=== PATIENT | female | born 2000 | race Caucasian/White ===

== ENCOUNTER → 2021-11-02 14:52 | Outpatient (CLI) | payer OTHER, SELFPAY ==
[2021-11-02 17:05] LABS: Add Manual Diff / Slide Review NO; Basophils Absolute Auto 0 /uL (0-100); Basophils Percent Auto 0.2 % (0-2); Eosinophils Absolute Auto 0 /uL (0-450); Eosinophils Percent Auto 0.4 % (2-4); Hematocrit 34.2 % (36-46); Hemoglobin 11.9 g/dL (12.0-16.0); Lymphocytes Absolute Auto 1700 /uL (1100-4500); Mean Corpuscular HGB Conc 34.7 % (30-36); Mean Corpuscular Hemoglobin 29.5 PG (26-34); Mean Corpuscular Volume 84.9 fL (80-100); Monocytes Absolute Auto 700 /uL (0-900); Monocytes Percent Auto 6.6 % (3-14); Neutrophils Absolute Auto 7800 /uL (1500-7000); Neutrophils Percent Auto 75.8 % (50-75); Platelet Count 261 X10^3/uL (150-400); Red Blood Cell Count 4.02 X10^6/uL (4.0-5.2); Red Cell Distribution Width 13.7 % (11.6-14.8); White Blood Cell Count 10.3 X10^3/uL (4.5-11.0)
[2021-11-02 17:23] LABS: Prothrombin Time 10.7 SECONDS (10.1-12.7)
[2021-11-02 17:25] LABS: PTT Partial Thromboplastin Tim 29 SECONDS (26.4-36.2)
[2021-11-02 17:34] LABS: HEMOLYSIS < 15 (0-50); Iron 55 ug/dL (37-170)
[2021-11-02 17:36] LABS: GTT (PREG) 1 Hour PP 50gm Dose 107 mg/dL (76-139)
[2021-11-02 17:44] LABS: Percent Iron Saturation 13 % (15-50); Total Iron Binding Capacity 438 ug/dL (265-497); Transferrin 330 mg/dL (206-381)
== END ==
PROVIDERS: Referring Provider Family Medicine; Visit Provider Family Medicine
DX: O99.019 Anemia complicating pregnancy, unspecified trimester (principal); R23.8 Other skin changes; Z67.11 Type A blood, Rh negative; N89.8 Other specified noninflammatory disorders of vagina
CPT/HCPCS: 36415; 82950; 83540; 83550; 85025; 85610; 85730; 86850; 87210

== ENCOUNTER → 2021-11-14 17:03 | Outpatient (ROUT) | payer OTHER, SELFPAY ==
[2021-11-14 18:34] LABS: Urine N gonorrhoeae NOT DETECTED
[2021-11-14 18:38] LABS: Urine Chlamydia DETECTED
== END ==
PROVIDERS: Visit Provider Family Medicine
DX: Z34.93 Encounter for supervision of normal pregnancy, unspecified, third trimester (principal); Z3A.30 30 weeks gestation of pregnancy
CPT/HCPCS: 87491; 87591

== ENCOUNTER 2021-11-25 21:18 | Observation (INO) | payer BC, OTHER, SELFPAY ==
[2021-11-25] MEDS: NIFEdipine 10 MG CAPSULE PO ×2 (22:22→22:41)
--- NOTE | 2021-11-26 11:15 | P.TNLD_ITS ---
Visit Information Visit Information Date of evaluation: 11/25/21 Primary OB Provider: Jillian Spence On-call OB Provider: Candy Damian Reason for Evaluation: Yes pre-term labor Comments/Additional reasons for admission: Patient with [place] contractions getting more painful Vital Signs Vital Signs: BP 115/62, P 91, T 36.7 PFSH Medical History (Updated 11/26/21 @ 11:31 by Candy Damian MD) Constipation Hyperemesis Surgical History (Updated 08/20/21 @ 11:39 by Billie Gibson, RN) History of tonsillectomy Family History (Updated 08/20/21 @ 11:41 by Billie Gibson, RN) Grandfather Clotting disorder Mother Hypothyroid Social History marital status: number of children: 1 household members: spouse and children lives independently: Yes housing: house pets and animals: Yes (Dog) education level: high school occupational status: unemployed current occupational exposures/hazards: No seatbelt use: always water heater temp set < 120 deg: Yes working smoke detector in home: Yes fire extinguisher in home: Yes carbon monox detector in home: Yes firearms in home: No do you feel safe at home: Yes Smoking Status: Never smoker second hand exposure: No alcohol intake: former substance use type: does not use during the past year weight has: remained stable well-balanced diet: daily or most days daily servings fruits/ve-4 caffeine: Yes (200mg) Type(s) of exercise: walking Review of Systems Review of Systems Narrative: Patient came in c/o contractions. No leakage of fluid. Finishing antibiotics for infection. No fevers. GFM. Evaluation Evaluation Baseline heart rate: 145 Variability: Moderate (11-25) monitor accelerations: Present Monitor Decelerations: Absent Contraction Frequency (minutes): 3 Uterine Contraction Intensity: Mild Category of Tracing: Reactive Status: Category l Comments: After po hydration and po nifedipine no further contractions Diagnosis, Plan/Disposition Final Diagnosis (1) Premature labor: Status: Acute (2) 31 weeks gestation of : Status: Acute Plan/Disposition Plan: Contractions resolved. Push fluids, rest, call M.D. if contractions return. OB Disposition: home
== END 2021-11-25 23:40 | disposition home or self-care (01) ==
PROVIDERS: Admitting Provider Specialist; Referring Provider Specialist; Visit Provider Specialist
DX: O60.03 Preterm labor without delivery, third trimester (principal); Z3A.31 31 weeks gestation of pregnancy
CPT/HCPCS: 59025; 59050; G0378; G0379

== ENCOUNTER → 2021-11-28 13:04 | Outpatient (CLI) | payer BC, OTHER, SELFPAY ==
--- NOTE | 2021-11-28 13:06 | DI.US.S_ITS ---
PROCEDURE: US OB LIMITED INDICATIONS: PLACENTAL HECK OUTSIDE/PRIOR DATING DATA: Last menstrual period (LMP): 04/16/2021. LMP-based estimated date of delivery (SHAHID): 01/21/2022. First dating scan (date and location): Unknown. Estimated date of delivery (SHAHID) from first dating scan: Not applicable TECHNIQUE: Real-time scanning was performed of the fetus, with image documentation. Endovaginal scanning: No COMPARISON: [facility], US, US OB > 14 WEEKS COMPLETE ANATOMY, 09/06/2021, 8:18. FINDINGS: A single living intrauterine gestation is present. Presentation: Breech. Placenta: Placental position is anterior, without previa. Placental Heck measuring 35 mm is present, which is within normal limits. Amniotic fluid index: 9.5 cm, normal range is 5-24 cm.. heart rate: 150 beats per minute. Maternal cervical canal: 4.2 cm long. Normal lower limit is 2.5 cm. Estimated gestational age from initial scan: 32 weeks 2 days. Survey of anatomy includes normal lateral ventricle/choroid plexus, four-chamber heart view, stomach/abdomen, bilateral renal regions, and urinary bladder/pelvis. IMPRESSION: 1. Single living intrauterine gestation. Dictated by: Carlos Connell M.D. on 11/28/2021 at 15:19 Approved by: Carlos Connell M.D. on 11/28/2021 at 16:55
== END ==
PROVIDERS: Referring Provider Family Medicine; Visit Provider Family Medicine
DX: O43.103 Malformation of placenta, unspecified, third trimester (principal); Z3A.32 32 weeks gestation of pregnancy
CPT/HCPCS: 76815; 76819

== ENCOUNTER 2021-12-04 12:22 | Observation (INO) | payer BC, OTHER, SELFPAY ==
[2021-12-04 13:11] LABS: Appearance Urine UA CLEAR; Bilirubin Urine UA NEGATIVE (NEGATIVE); Color Urine UA YELLOW; Glucose Urine UA NEGATIVE (Negative); Ketones Urine UA TRACE (NEGATIVE); Leukocyte Esterase Urine UA TRACE (NEGATIVE); Nitrite Urine UA NEGATIVE (Negative); Occult Blood Urine UA NEGATIVE (Negative); Protein Urine UA 1+ (Negative); Specific Gravity Urine UA 1.025 (1.000-1.035); Urobilinogen Urine UA 0.2 E.U./dL (0.2)
[2021-12-04 13:23] LABS: pH Urine UA 6.5 (4.5-8.0)
--- NOTE | 2021-12-04 13:26 | PM.OBTRLD ---
Visit Information Visit Information Date of evaluation: 12/04/21 Primary OB Provider: Jillian Spence Reason for Evaluation: Yes pre-term labor Comments/Additional reasons for admission: 21yo at 33w1d here due to abdominal cramping. Pt reports cramping started last night, and has been more painful this morning. It occurs approximately every 5 minutes. Sometimes it is strong enough to take her breath away. No vaginal bleeding or LOF. She is feeling her baby move regularly. [facility] Medical History (Updated 12/05/21 @ 13:16 by Jillian Spence MD) Constipation Hyperemesis Surgical History (Updated 08/20/21 @ 11:39 by Billie Gibson, RN) History of tonsillectomy Family History (Updated 08/20/21 @ 11:41 by Billie Gibson, RN) Grandfather Clotting disorder Mother Hypothyroid Social History marital status: number of children: 1 household members: spouse and children lives independently: Yes housing: house pets and animals: Yes (Dog) education level: high school occupational status: unemployed current occupational exposures/hazards: No seatbelt use: always water heater temp set < 120 deg: Yes working smoke detector in home: Yes fire extinguisher in home: Yes carbon monox detector in home: Yes firearms in home: No do you feel safe at home: Yes Smoking Status: Never smoker second hand exposure: No alcohol intake: former substance use type: does not use during the past year weight has: remained stable well-balanced diet: daily or most days daily servings fruits/ve-4 caffeine: Yes (200mg) Type(s) of exercise: walking Objective Labs Labs: Laboratory Results - last 24 hr 12/04/21 12:31 Urine Color Yellow Urine Appearance Clear Urine pH 6.5 Ur Specific [place] 1.025 Urine Protein 1+ H Urine Glucose (UA) Negative Urine Ketones Trace H Urine Occult Blood Negative Urine Nitrate Negative Urine Bilirubin Negative Urine Urobilinogen 0.2 Ur Leukocyte Esterase Trace H Evaluation Evaluation Baseline heart rate: 140 Variability: Moderate (11-25) monitor accelerations: Present Monitor Decelerations: Absent Cervical dilation (cm): 0 Cervical effacement (%): 0 station: -3 Comments: Contractions initially every 6 minutes, then every 2-3 minutes, then not detectable Diagnosis, Plan/Disposition Final Diagnosis (1) contractions: Status: Acute (2) 33 weeks gestation of : Status: Acute Plan/Disposition Plan: 21yo at 33w1d here with contractions. Pt was recently treated for chlamydia, DENNIS currently pending. U/A without evidence UTI. Does appear slightly dehydrated on U/A, however. Did respond to 1L IVF bolus, PO Nifedipine. Cervix not dilated, cervical length 3.9 - FFN collected but not sent. Contractions abated at the time of discharge. Discussed strict return precautions. Encouraged increased hydration. PRN PO Nifedipine prescribed today, discussed appropriate use. Pt will f/u in clinic next week. OB Disposition: home
--- NOTE | 2021-12-04 13:27 | DI.US.S_ITS ---
PROCEDURE: US OB LIMITED INDICATIONS: PTL; EFW, CX OUTSIDE/PRIOR DATING DATA: Last menstrual period (LMP): 04/16/2021. LMP-based estimated date of delivery (SHAHID): 01/21/2022. First dating scan (date and location): Not available. Estimated date of delivery (SHAHID) from first dating scan: Not available. The calculations are made using the clinical SHAHID of 01/21/2022. TECHNIQUE: Real-time scanning was performed of the fetus, with image documentation and biometric measurements. Biophysical profile was also obtained. Endovaginal scanning: Not performed. COMPARISON: [facility], , OB FOLLOW UP, 11/08/2021, 17:02. [facility], OB > 14 WEEKS COMPLETE ANATOMY, 09/06/2021, 8:18. [facility], OB LIMITED, 11/28/2021, 14:35. FINDINGS: General: A single living intrauterine gestation is present. Presentation: Vertex. Placenta: Placental position is anterior , without previa. Placental Heck measuring 2.1 cm. Amniotic fluid index: 15.5 cm, normal range is 5-24 cm. Single deepest vertical pocket is 4.6 cm. heart rate: 137 beats per minute. Maternal cervical canal: 3.9 cm long. Normal lower limit is 2.5 cm. biometrics: Biparietal diameter: 32 weeks 3 days Head circumference: 33 weeks 4 days Abdominal circumference: 33 weeks 1 day Femur length: 34 weeks 2 days Clinically estimated gestational age: 33 weeks 1 day Composite gestational age from present scan: 33 weeks 3 days Estimated weight and percentile: 2198 g; 51%. Measurement variability for biometric dating: +/- 7 days from 14 weeks to 15 weeks 6 days gestation, +/- 10 days from 16 weeks to 21 weeks 6 days gestation, +/- 2 weeks from 22 weeks to 27 weeks 6 days gestation, +/- 3 weeks for 28 weeks gestation or later. weight reference: 4500 g or EFW >90/95% is considered macrosomia or large for gestational age. EFW <10% is small for gestational age. EFW 5% or less is considered intra-uterine growth restriction. IMPRESSION: 1. A single living intrauterine gestation with appropriate interval growth. 2. weight 2198 g at 51%. 3. Cervix is closed measuring 3.9 cm. We strive to produce accurate, complete, and clear reports of imaging services. To assist us in improving patient care, this report was composed using standard report templates and voice recognition software. Therefore, it may contain abnormal punctuation, insertions and/or omissions. Occasional wrong-word or sound-alike substitutions may occur. Though we review the report and make efforts to correct it, we do recommend that the report be read carefully in proper context to recognize any text inaccuracies. Dictated by: Kami Moss M.D. on 12/04/2021 at 15:08 Approved by: Kami Moss M.D. on 12/04/2021 at 15:17
[2021-12-04 13:38] LABS: Bacteria Urine None Seen; Calcium Oxalate Crystals Urine Occasional; Culture Indicated Urine Cult Not Indicated; Mucus Urine 2+ (Negative); RBC Urine None Seen (0-5/HPF); Squamous Epithelial Cell Urine 1-5 /HPF (0-5/HPF); WBC Urine 0-1/HPF (0-5/HPF)
[2021-12-04] MEDS: NIFEdipine 10 MG CAPSULE PO ×4 (14:10→15:29)
[2021-12-04 14:44] LABS: Urine N gonorrhoeae NOT DETECTED
[2021-12-04 15:02] LABS: Urine Chlamydia NOT DETECTED
== END 2021-12-04 16:00 | disposition home or self-care (01) ==
PROVIDERS: Admitting Provider Family Medicine; Referring Provider Family Medicine; Visit Provider Family Medicine
DX: O47.03 False labor before 37 completed weeks of gestation, third trimester (principal); Z3A.33 33 weeks gestation of pregnancy
CPT/HCPCS: 59025; 59050; 76815; 76819; 81001; 87491; 87591; 96360; G0378; G0379

== ENCOUNTER → 2021-12-21 16:06 | Outpatient (CLI) | payer BC, OTHER, SELFPAY | PROVIDERS: Visit Provider Family Medicine | DX: N88.8 Other specified noninflammatory disorders of cervix uteri (principal) | CPT/HCPCS: 87070; 87205 ==

== ENCOUNTER 2021-12-29 10:11 | Observation (INO) | payer BC, OTHER, SELFPAY ==
--- NOTE | 2021-12-29 11:34 | P.TNLD_ITS ---
Visit Information Visit Information Date of evaluation: 12/29/21 Primary OB Provider: Jillian Spence On-call OB Provider: Lisa Kuhn Reason for Evaluation: Yes non-stress test and Yes rule out labor Comments/Additional reasons for admission: 21-year-old female brought in to rule out rupture membranes and for evaluation for decreased movement. She called with questionable leakage of fluid. Sounded less likely but offered evaluation for small leak, rupture membranes. Did advise the patient after further questioning she should come in for a nonstress test due to reported decreased movement. Over the past week she has only felt movement over 1-2 hours versus felt movement the entire day previously. She reports over past 2 days noticing 50 cent piece size area of wetness in her pantiliner changing it when she uses the bathroom every 1 hour. Not seeing any discharge mixed with the moisture. Noted a sweet smell to it. On arrival here denies any vaginal bleeding. Reports feeling some increased contractions since arrival. She was treated for contractions with nifedipine earlier in and continues on modified bed rest for the contractions. She will be 37 weeks now in 2 days. [facility] Medical History (Updated 12/05/21 @ 13:16 by Jillian Spence MD) Constipation Hyperemesis Surgical History (Updated 08/20/21 @ 11:39 by Billie Gibson RN) History of tonsillectomy Family History (Updated 08/20/21 @ 11:41 by Billie Gibson RN) Grandfather Clotting disorder Mother Hypothyroid Social History marital status: number of children: 1 household members: spouse and children lives independently: Yes housing: house pets and animals: Yes (Dog) education level: high school occupational status: unemployed current occupational exposures/hazards: No seatbelt use: always water heater temp set < 120 deg: Yes working smoke detector in home: Yes fire extinguisher in home: Yes carbon monox detector in home: Yes firearms in home: No do you feel safe at home: Yes Smoking Status: Never smoker second hand exposure: No alcohol intake: former substance use type: does not use during the past year weight has: remained stable well-balanced diet: daily or most days daily servings fruits/ve-4 caffeine: Yes (200mg) Type(s) of exercise: walking Evaluation Evaluation Baseline heart rate: 135 Variability: Moderate (11-25) monitor accelerations: Absent Monitor Decelerations: Absent Contraction Frequency (minutes): 30 Uterine Contraction Intensity: Mild Category of Tracing: Reactive Status: Category l Cervical dilation (cm): 0 Cervical effacement (%): 0 Non-invasive Membranes Rupture Test: negative (negative amnisure) Diagnosis, Plan/Disposition Plan/Disposition Plan: 1. 36wk5d . Decreased movement 2. No evidence of ruptured membranes 3. Yeast infection on recent culture Plan: Discussed with her increased moisture in panty liner likely due to the yeast infection. She had noted increased yellow green discharge recently, not seeing that as much now but just moisture. Culture from 12/21 showed yeast and presumptive Gardnerella. She has no odor itching just that had the discharge. Discussed with her and gave option of treating for both for starting with brenton ating the yeast and she has no BV symptoms. After discussion we will treat for the yeast and she will see if symptoms improve. If she has any symptoms of BV then this could be treated subsequently as well. 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 She was observed longer to rule out onset of early labor. Initially few small contractions picked up every 5 minutes for about 3 contractions, then none for over 20 minutes. Patient reports she felt stronger and more frequent contractions yesterday and on exam today, they did not change her cervix. Discussed no evidence of labor at this time. Patient comfortable with discharge home and to return for more frequent stronger contractions.
== END 2021-12-29 12:30 | disposition home or self-care (01) ==
LOC: LABOR 10:15
PROVIDERS: Admitting Provider Obstetrics & Gynecology; Referring Provider Obstetrics & Gynecology; Visit Provider Obstetrics & Gynecology
DX: Z03.71 Encounter for suspected problem with amniotic cavity and membrane ruled out (principal); O36.8130 Decreased fetal movements, third trimester, not applicable or unspecified; Z3A.36 36 weeks gestation of pregnancy
CPT/HCPCS: 59025; 59050; 84112; G0378; G0379

== ENCOUNTER → 2022-01-01 10:51 | Outpatient (CLI) | payer BC, OTHER, SELFPAY ==
[2022-01-02 08:00] LABS: Strep Grp B PCR NEG for Grp B Strep
== END ==
PROVIDERS: Visit Provider Family Medicine
DX: Z34.93 Encounter for supervision of normal pregnancy, unspecified, third trimester (principal); Z36.85 Encounter for antenatal screening for Streptococcus B
CPT/HCPCS: 87653

== ENCOUNTER 2022-01-14 07:11 | Inpatient (IN) | payer BC, OTHER, SELFPAY ==
[2022-01-14 08:18] LABS: Add Manual Diff / Slide Review NO; Basophils Absolute Auto 100 /uL (0-100); Basophils Percent Auto 0.5 % (0-2); Eosinophils Absolute Auto 0 /uL (0-450); Eosinophils Percent Auto 0.4 % (2-4); Hematocrit 33.2 % (36-46); Hemoglobin 11.3 g/dL (12.0-16.0); Lymphocytes Absolute Auto 1600 /uL (1100-4500); Lymphocytes Percent Auto 16.6 % (25-40); Mean Corpuscular HGB Conc 33.9 % (30-36); Mean Corpuscular Volume 85.4 fL (80-100); Monocytes Absolute Auto 600 /uL (0-900); Neutrophils Absolute Auto 7400 /uL (1500-7000); Neutrophils Percent Auto 76.5 % (50-75); Platelet Count 227 X10^3/uL (150-400); Red Blood Cell Count 3.89 X10^6/uL (4.0-5.2); Red Cell Distribution Width 14.2 % (11.6-14.8); White Blood Cell Count 9.6 X10^3/uL (4.5-11.0)
[2022-01-14 08:35] LABS: COVID19 -Nasal RAPID Negative (Negative)
[2022-01-14 09:07] VITALS: BP 123/72
[2022-01-14] MEDS: LACTATED RINGERS 1,000 ML 100 ML IV (09:35)
[2022-01-14] MEDS: OXYTOCIN PREMIX 30 UNIT/500 ML PLAST..BAG IV (09:36)
--- NOTE | 2022-01-14 10:35 | P.HPOB_ITS ---
OB HPI Date/Time Date of admission: 01/14/22 Date Patient Seen: 01/14/22 Time Patient Seen: 08:15 History of Present Condition Chief complaint: INDUCTION OF LABOR SHAHID Calculator Estimated Delivery Date Method Current WG Current Estimate 01/21/22 Manual 39w 0d Final SHAHID - BREE Other Estimates 12/22/21 LMP (Uncertain) 43w 2d 01/20/22 Ultrasound #1 39w 1d 01/21/22 Ultrasound #2 39w 0d Estimated Gestational Age (weeks): 39w0d : 2 Para: 1 Narrative: Pt is a 21yo at 39w0d here for elective IOL. Pt denies any significant vaginal bleeding, LOF, or contractions. She has had mild cramping. The pts was complicated by hyperemesis, however pt declined IVF hydration. She did have chlamydia in the 3rd trimester as well, treated appropriately with negative DENNIS. The pt had contractions at 33 weeks controlled with PO Nifedipine, stopped at 37 weeks. care: good care, initiated at week # (6) and pounds weight gain (11) Dating criteria OB: based on 1st trimester US only Ultrasounds: normal 1st trimester US and normal mid trimester US Obstetrical complications: labor and hyperemesis Medical complications OB: none Preadmission Labs Last OB Lab Results: Blood Type A Negative 01/14/22 07:45 Antibody Screen Negative 01/14/22 07:45 Hematocrit 33.2 % (36-46) L 01/14/22 07:14 Hemoglobin 11.3 g/dL (12.0-16.0) L 01/14/22 07:14 Glucose 1 Hour 107 mg/dL (76-139) 11/02/21 15:16 Group B Streptococcus (PCR) Neg for grp b strep 01/01/22 10:51 -: Chlamydia screen: positive, Gonorrhea screen: negative and Urine: negative External Labs -: HBsAG: negative, HIV: negative, RPR/VDLR: negative and Urine: negative -: Rubella: immune HCAB: negative Prior (ies) Past Pregnancies Del. Date GA/Weeks Labor Lgth Wt Sex Route Outcome Anesthesia Place Delv Breastfeed Preg Comp Name 05/19/20 39 10 6 lb [facility] none [place] Delivery Date: 05/19/20 Last Updated by: Orville DominguezN. Induced, pt short stature Evaluation Evaluation Baseline heart rate: 140 Variability: Moderate (11-25) monitor accelerations: Present Monitor Decelerations: Absent Status: Category l Dilation (cm): 3 Effacement (%): 70 Dilation: 3-4 cm Effacement: 60-70% station: -1 Position of cervix: anterior Consistency: soft Lake score: 10 PFSH Medical History (Updated 01/01/22 @ 09:58 by Jillian Spence MD) Constipation Hyperemesis Surgical History (Updated 08/20/21 @ 11:39 by Billie Gibson RN) History of tonsillectomy Family History (Updated 08/20/21 @ 11:41 by Billie Gibson RN) Grandfather Clotting disorder Mother Hypothyroid Social History marital status: number of children: 1 household members: spouse and children lives independently: Yes housing: house pets and animals: Yes (Dog) education level: high school occupational status: unemployed current occupational exposures/hazards: No seatbelt use: always water heater temp set < 120 deg: Yes working smoke detector in home: Yes fire extinguisher in home: Yes carbon monox detector in home: Yes firearms in home: No do you feel safe at home: Yes Smoking Status: Never smoker second hand exposure: No alcohol intake: former substance use type: does not use during the past year weight has: remained stable well-balanced diet: daily or most days daily servings fruits/ve-4 caffeine: Yes (200mg) Type(s) of exercise: walking Meds Home Medications and Allergies Home Medications Medication Instructions Recorded Confirmed Type docusate sodium 100 mg capsule 100 mg PO DAILY 08/20/21 01/14/22 History (Colace) prenat.vits,dre,lcs-bzip-hazdf 1 tab PO DAILY 08/20/21 01/14/22 History ondansetron 4 mg disintegrating 4 mg PO Q8H #60 tabs 10/22/21 01/14/22 Rx tablet Spectra S1 Plus #1 ea 12/21/21 01/14/22 Rx breast pump #1 ea 01/09/22 01/14/22 Rx breast pump #1 ea 01/09/22 01/14/22 Rx Allergies Allergy/AdvReac Type Severity Reaction Status Date / Time promethazine [From Phenergan] AdvReac Mild Dizziness Verified 01/01/22 09:22 OB Exam Narrative Exam Narrative: Gen: NAD, sitting comfortably in bed, appears well CV: RRR, no murmurs Resp: clear to auscultation bilaterally Abd: soft, nontender, gravid Ext: no edema Objective Labs Result Diagrams: 01/14/22 07:14 Labs: Laboratory Results - last 24 hr 01/14/22 01/14/22 01/14/22 07:14 07:45 07:45 WBC 9.6 RBC 3.89 L Hgb 11.3 L Hct 33.2 L MCV 85.4 MCH 29.0 MCHC 33.9 RDW 14.2 Plt Count 227 Neut % (Auto) 76.5 H Lymph % (Auto) 16.6 L [place] % (Auto) 6.0 Eos % (Auto) 0.4 L Baso % (Auto) 0.5 Neut # (Auto) 7400 H Lymph # (Auto) 1600 [place] # (Auto) 600 Eos # (Auto) 0 Baso # (Auto) 100 SARS-CoV-2 (PCR) Negative Blood Type A Negative Antibody Screen Negative Assessment and Plan Assessment and Plan Assessment and Plan narrative: 21yo at 39w0d here for elective IOL. GBS negative, Rh negative. Lake score 10. - Expectant management, anticipate - FHT reassuring - GBS negative, no prophylaxis needed - Desires natural methods for pain control - Start pitocin, titrate as tolerated
[2022-01-14] MEDS: ONDANSETRON 4 MG/2 ML INJ IV ×2 (12:12→21:30)
--- NOTE | 2022-01-14 15:12 | PM.OBPNLAB ---
Date/Time Date Patient Seen: 01/14/22 Time Patient Seen: 14:00 Pain Control Pain control: tolerating well Pelvic Exam Dilation (cm): 3 Effacement (%): 70 station: -1 Amniotic membrane status: Ruptured Comments: After informed consent, AROM performed with production of clear fluid. Contractions Pitocin rate (mU/min): 10 Contraction frequency (min): 3 Status status: Category l Heart Rate Baseline: 140 Monitor Accelerations: Present Monitor Decelerations: Absent Monitor Variability: Moderate Assessment and Plan Comments: 21yo at 39w0d here for elective IOL.? GBS negative, Rh negative.? On pitocin, tolerating well. AROM performed with production of clear fluid. - Expectant management, anticipate - FHT reassuring - Desires natural methods for pain control - Continue pitocin, titrate as tolerated
--- NOTE | 2022-01-14 19:35 | PM.OBPNLAB ---
Date/Time Date Patient Seen: 01/14/22 Time Patient Seen: 19:36 Pain Control Comments: Pt using nitrous for pain control. Increasing pain. Pelvic Exam Dilation (cm): 7 Effacement (%): 80 station: 0 Amniotic membrane status: Ruptured Contractions Pitocin rate (mU/min): 4 Contraction frequency (min): 3 Status status: Category l Heart Rate Baseline: 130 Monitor Accelerations: Present Monitor Decelerations: Absent Monitor Variability: Moderate Assessment and Plan Comments: 21yo at 39w0d here for elective IOL.? GBS negative, Rh negative.? On pitocin, increasing pain on nitrous now.? Clear fluid with AROM. Pt without significant cervical change in the last 2 hours. - Expectant management, anticipate - FHT reassuring - Plan on epidural for pain control now. Hopeful this allows for more pelvic relaxation for descent/cervical dilation. - Continue pitocin, titrate as tolerated
[2022-01-14] MEDS: ACETAMINOPHEN 325 MG TABLET 650 MG PO (21:50)
[2022-01-14] MEDS: ePHEDrine 50 MG/ML VIAL 10 MG IV (23:09)
--- NOTE | 2022-01-15 01:11 | PM.OBPRVD ---
Labor & Delivery Delivery date: 01/15/22 Cervical ripening method: none Induction method: per pitocin protocol Delivery augmentation: rupture of membranes Delivery monitor: external FHT and external uterine Route of delivery: Episiotomy description: None L&D Laceration Description: Vaginal - 1st Degree Quantitative Blood Loss: 150 Anesthesia Type: Epidural Complications: None Narrative: PROCEDURE: at 39w0d presented for elective IOL and was admitted to Labor and Delivery. She was initiated on pitocin, that was titrated to a maximum of 10mU. AROM was performed with clear fluid present. The patient progressed through the 1st stage over [id number]. Pain was controlled with an epidural after the pt had stalled at 6-7cm. She then progressed to complete. The patient progressed through the 2nd stage over 35 minutes and delivered a viable female infant with APGARs 8/9 at 00:44 via without complications. The cord was cut and clamped after it stopped pulsating. The perineum and vagina were inspected with small 1st degree laceration repaired with 4-O Chromic. PREPROCEDURE DIAGNOSIS: Intrauterine at 39w1d GBS negative RH negative POSTPROCEDURE DIAGNOSIS: Intrauterine at 39w1d, delivered Same as preprocedure Baby 1: gender: Female Presentation: vertex Position: Left Occiput Anterior Placenta delivery description: Spontaneous Cord Vessel Description: 3 Vessels score (1 min): 8 score (5 min): 9 weight: 6 lb 5.871 oz Plan for aftercare: Routine care
[2022-01-15] MEDS: ACETAMINOPHEN 325 MG TABLET 650 MG PO (03:28)
[2022-01-15] MEDS: OXYCODONE IR 5 MG TABLET PO (04:20)
[2022-01-15] MEDS: KETOROLAC 30 MG/ML VIAL IV ×3 (05:22→20:47)
[2022-01-15] MEDS: ONDANSETRON 4 MG/2 ML INJ IV ×2 (05:23→10:55)
[2022-01-15] MEDS: METOCLOPRAMIDE 10 MG/2 ML INJ IV ×3 (08:33→20:47)
[2022-01-15] MEDS: LACTATED RINGERS 1,000 ML 1000 ML IV (08:33)
[2022-01-15] MEDS: fentaNYL 100 MCG/2 ML INJ IV ×2 (09:04→12:09)
[2022-01-15] MEDS: DEXAMETHASONE 10 MG/ML VIAL IV (12:07)
[2022-01-15] MEDS: diphenhydrAMINE 50 MG/ML VIAL 25 MG IV ×2 (15:42→20:47)
[2022-01-15] MEDS: DERMOPLAST SPRAY 20% 60 ML 1 SPRAY TOP (15:45)
[2022-01-15] MEDS: LANOLIN OINT 7 GM 1 APPLIC TOP (15:45)
[2022-01-16] MEDS: DOCUSATE 100 MG CAPSULE PO (08:45)
[2022-01-16] MEDS: ACETAMINOPHEN 325 MG TABLET 650 MG PO (08:45)
[2022-01-16] MEDS: PRENATAL VIT,CALC/IRON/FOLIC 1 TABLET 1 TAB PO (08:45)
--- NOTE | 2022-01-16 09:12 | PM.OBDS.1 ---
Discharge Providers Provider Date of admission: 01/14/22 07:11 Discharge Date: 01/16/22 Primary care physician: Doctor Kannan MD Consults: 01/16/22 01:10 Consult to Inventory Control/Shipping Receiving Routine Comment: Discharge provider: Jillian Spence MD Summary Hospital Course Date Patient Seen: 01/16/22 Time Patient Seen: 08:00 Diagnoses: 39w1d gestation Rh negative GBS negative Migraine headache Hospital Course: The pt presented for elective IOL. She was started on pitocin for induction. AROM was performed with clear fluid present. She ultimately received an epidural for pain control. She progressed to complete and had an of a viable baby girl without complications. A small 1st degree laceration was then repaired. , the pt had a severe headache with nausea and vomiting. Anesthesiology was consulted, and it was determined to be a migraine and not a spinal headache. It was ultimately controlled with Toradol, Benadryl, and Reglan. The day of discharge, her symptoms had completely resolved. At the time of discharge, she was voiding, ambulating and passing flatus without difficulty. Her lochia was decreasing appropriately. She was with good latch. Her pain was controlled. Her baby was Rh negative, and the pt did not require a Rhogam shot. She will f/u in clinic in 6 weeks for check. Her plans on vasectomy for contraception. Peripartum Data Infant Delivery Method: Natural Vaginal Laceration Description: Perineal - 1st Degree Episiotomy description: None Procedures: Spontaneous vaginal delivery complications: other (migraine) Emerson 1: Gender: Female Disposition of : home Discharge Diagnosis (1) Spontaneous vaginal delivery: Status: Acute (2) Migraine headache: Status: Acute Status at Discharge Cognitive/behavioral status at discharge: oriented Functional status at discharge: independent ambulation Overall status at discharge: patient is progressing back to baseline Time Spent with Patient Time attestation: Total time spent providing and/or coordinating discharge services: Objective Labs Result Diagrams: 01/14/22 07:14 Exam Narrative Exam Narrative: Gen: NAD, sitting comfortably in bed, appears well CV: RRR, no murmurs Resp: clear to auscultation bilaterally Abd: soft, appropriately tender, fundus firm and below the umbilicus, nondistended Ext: no edema Discharge Plan Discharge Plan Patient Disposition: Home Discharge orders & Medications Prescriptions: New acetaminophen 325 mg Tablet 650 mg PO Q6HR PRN (Reason: Pain, Mild (1-3)) Qty: 30 0RF docusate sodium 100 mg Capsule 100 mg PO DAILY Qty: 30 0RF ibuprofen 600 mg Tablet 600 mg PO Q6HR PRN (Reason: Pain, Mild (1-3)) Qty: 30 0RF ondansetron 4 mg tablet,disintegrating 4 mg PO Q8H PRN (Reason: nausea and vomiting) Qty: 20 0RF metoclopramide HCl [Reglan] 5 mg tablet 5 mg PO QAC PRN (Reason: nausea and vomiting) Qty: 10 0RF Rx Instructions: administer 30 minutes before meals Continued (DME) breast pump Device See Rx Instructions .Route Qty: 1 0RF Rx Instructions: Spectra Gold breast pump (DME) breast pump Device See Rx Instructions .Route Qty: 1 0RF Label Comments: Not using at this time Rx Instructions: As directed prenat.vits,dre,kig-[id number]-qtogp Tablet 1 tab PO DAILY Discontinued ondansetron 4 mg tablet,disintegrating 4 mg PO Q8H Qty: 60 2RF (DME) Spectra S1 Plus See Rx Instructions .ROUTE .MEDSUPPLY Qty: 1 0RF Rx Instructions: As directed docusate sodium [Colace] 100 mg capsule 100 mg PO DAILY Label Comments: Im not taking that anymore. Follow up/Referrals: Jillian Spence MD [Physician] - 03/01/22 10:15 am (6 week visit. Please arrive 15 minutes prior to appointment for check in. ) Diet/Activity/Treatments Diet: Feed on demand Skin/Wound/Dressing Care Report to your healthcare provider any signs of infection, such as:: chills, fever Visit Report/Discharge Packet Instructions: DI for Labor and Delivery, Vaginal Stand Alone Forms: Discharge: Care Visit Report Forms: Patient Portal/API, Stroke Signs & Symptoms Discharge Data Primary Care Provider: Miscellaneous,Doctor Discharges patient from system. Discharge Date/Time: 01/16/22 10:58
[2022-01-16 09:24] VITALS: BP 121/78; PULSE 82; RESP 18; TEMP 36.2
== END 2022-01-16 10:58 | disposition home or self-care (01) | DRG 806 ==
PROVIDERS: Admitting Provider Family Medicine; Referring Provider Family Medicine; Visit Provider Family Medicine
DX: O98.32 Other infections with a predominantly sexual mode of transmission complicating childbirth (principal); O71.4 Obstetric high vaginal laceration alone; Z37.0 Single live birth; A56.8 Sexually transmitted chlamydial infection of other sites; Z3A.39 39 weeks gestation of pregnancy; O90.89 Other complications of the puerperium, not elsewhere classified; G43.909 Migraine, unspecified, not intractable, without status migrainosus
CPT/HCPCS: 01967; 36415; 59050; 59400; 85025; 86850; 86900; 86901; 87635; C9803; G0379; J1100; J1200; J1885; J2405; J2590; J2765; J3010

== ENCOUNTER 2022-01-17 09:56 | Day surgery (SDC) | payer OTHER, SELFPAY ==
[2022-01-17 10:02] VITALS: BP 126/75; PULSE 72; RESP 16; TEMP 37; O2SAT 99; BMI 32.2
[2022-01-17] MEDS: LACTATED RINGERS 1,000 ML 1000 ML IV (10:15)
[2022-01-17] MEDS: ONDANSETRON 4 MG/2 ML INJ IV (10:30)
--- NOTE | 2022-01-17 10:48 | P.PCN_ITS ---
Procedures Date/Time Date of procedure: 01/17/22 Time of procedure: 10:48 General Procedure description: Epidural blood patch for post dural puncture HWANG. Pt seated, iodine x 3 prep, sterile drape, sterile technique. Lidocaine 1% skin wheal, L3-4, Hustead inserted until TREVON with saline at 6cm, no blood, no CSF. 15mL autologous blood drawn by RN administered into epidural space - pt reported beginning to feel fullness in her lower back, denied paresthesia with injection. Pt reported some immediate improvement in her headache. Advised to lay down x 1 hour in PACU, limit activity x 24h, no lifting, minimize exertion. Pt advised to call certified income tax preparer L&D to reach senior applications engineer anesthesia if any questions or concerns. VSS, tolerated procedure well. Complications: none
[2022-01-17 10:49] VITALS: BP 131/86; PULSE 63; RESP 20; TEMP 37.1; O2SAT 97
--- NOTE | 2022-01-17 10:55 | SUR.PREOP ---
Pt arrived for blood patch, Lisa Alcantar performed procedure. No complications, Pt immediately felt relief of head pauin and presently with no pain. IV fluids infusing,pt feeding baby at bedside, supportive. VSS. Pt medicated prior to procedure with zofran for nausea, nausea fully resolved at present as well.
--- NOTE | 2022-01-17 10:55 | PM.HP.1 ---
History of Present Illness History of Present Illness Date Patient Seen: 01/17/22 Time Patient Seen: 10:00 Date of Onset of Symptoms: 01/15/22 Chief complaint: EPIDURAL BLOOD PATCH Narrative: global HWANG, worse upright, better supine/lying flat, onset almost immediately after insertion of difficult labor epidural. Denies fever/chills/rash, reports mild photophobia. Patient History Medical History (Updated 01/17/22 @ 10:46 by Leonard Alcantar DO) Constipation Hyperemesis Post-dural puncture headache Surgical History (Updated 08/20/21 @ 11:39 by Billie Gibson, RN) History of tonsillectomy Family & Social History Family History (Updated 08/20/21 @ 11:41 by Billie Gibson, RN) Grandfather Clotting disorder Mother Hypothyroid Social History: household members spouse,children lives independently Yes Tobacco & Substance use: Smoking Status Never smoker alcohol intake former Substance Use Type does not use Meds Home Medications and Allergies Home Medications Medication Instructions Recorded Confirmed Type prenat.vits,dre,sce-xxrl-axiiw 1 tab PO DAILY 08/20/21 01/14/22 History breast pump #1 ea 01/09/22 01/14/22 Rx breast pump #1 ea 01/09/22 01/14/22 Rx acetaminophen 325 mg tablet 650 mg PO Q6HR PRN Pain, Mild 01/16/22 Rx (1-3) #30 tabs docusate sodium 100 mg capsule 100 mg PO DAILY #30 caps 01/16/22 Rx ibuprofen 600 mg tablet 600 mg PO Q6HR PRN Pain, Mild 01/16/22 Rx (1-3) #30 tabs metoclopramide HCl 5 mg tablet 5 mg PO QAC PRN nausea and 01/16/22 Rx (Reglan) vomiting #10 tabs ondansetron 4 mg disintegrating 4 mg PO Q8H PRN nausea and 01/16/22 Rx tablet vomiting #20 tabs Allergies Allergy/AdvReac Type Severity Reaction Status Date / Time promethazine [From Phenergan] AdvReac Mild Dizziness Verified 01/01/22 09:22 Review of Systems Constitutional Comments: Denies fever/chills Cardiovascular Comments: denies CP/SOB/BRUNO Respiratory Comments: Denies cough, wheeze, dyspnea Gastrointestinal Comments: reports some N/V/anorexia Exam Vital Signs (past 8 hours): - 01/17/22 10:02 01/17/22 10:49 Temperature 98.6 F 98.7 F Pulse Rate 72 63 Respiratory Rate 16 20 Blood Pressure 126/75 131/86 Pulse Oximetry 99 97 Oxygen Delivery Method Room Air Room Air Oxygen Delivery Method Room Air Narrative Exam Narrative: WNWD, post x 2d, uncomfortable appearing, NAD Chest Other: CTA Resp Other: normal, unlabored Cardio Other: regular rate, rhythm Back/Spine/Pelvis Other: 4 needle soler from previous epidural, mild TTP, no erythema Neuro Other: grossly intact, no focal deficit Assessment & Plan Assessment & Plan narrative: Clinical presentation consistent with post-dural puncture headache: onset, clinical signs, mechanism. No evidence of infectious etiology, no neurological deficit. Discussed at length with pt and clinical course of PDPH, anticipated natural course with and without intervention. Discussed risks/benefits and possible complications of intervention including bleeding, infection, PDPH. Pt and wish to proceed with epidural blood patch. Consent signed. See procedure note.
--- NOTE | 2022-01-17 12:39 | SUR.PHASEII ---
Pt ready to go, left in stable condition. Blood patch site c/d/i.
[2022-01-17 12:41] VITALS: BP 145/80; PULSE 77; RESP 16; TEMP 36.6; O2SAT 98
== END 2022-01-17 12:30 | disposition home or self-care (01) ==
PROVIDERS: PCP Family Medicine; Referring Provider Obstetrics & Gynecology; Visit Provider Anesthesiology
PROC: 3E0R3GC Introduction of Other Therapeutic Substance into Spinal Canal, Percutaneous Approach (ICD-10-PCS; CPT 62273; principal; 2022-01-17 10:00)
DX: G97.1 Other reaction to spinal and lumbar puncture (principal)
CPT/HCPCS: 62273; J2405

== ENCOUNTER → 2022-02-14 17:34 | Outpatient (CLI) | payer BC, OTHER, SELFPAY ==
--- NOTE | 2022-02-14 17:36 | DI.US.S_ITS ---
PROCEDURE: US PELVIC COMPLETE INDICATIONS: pelvic u/s to ensure no retained POC, bleeding post TECHNIQUE: Real-time scanning was performed of the pelvic organs, with image documentation. Additional endovaginal scanning was necessary due to incomplete visualization of the adnexal and endometrial structures by transabdominal scanning. COMPARISON: None. FINDINGS: Uterus: Uterus is retroverted and normal in size at 9.8 x 4.5 x 5.2 cm. The myometrium is homogeneous. The endometrium measures 7 8 mm combined thickness. Scrutiny is given to abnormal vascularity along the endometrial stripe. None can be seen. Ovaries: The right ovary measures 2.8 x 1.6 x 1.9 cm. The left ovary measures 2.1 x 2.9 x 1.9 cm. The ovaries have a normal sonographic appearance. No adnexal masses are seen. Other: No pathologic free abdominal or pelvic fluid. IMPRESSION: Unremarkable endometrial stripe, without retained products of conception. We strive to produce accurate, complete, and clear reports of imaging services. To assist us in improving patient care, this report was composed using standard report templates and voice recognition software. Therefore, it may contain abnormal punctuation, insertions and/or omissions. Occasional wrong-word or sound-alike substitutions may occur. Though we review the report and make efforts to correct it, we do recommend that the report be read carefully in proper context to recognize any text inaccuracies. Dictated by: Dirk Johnson M.D. on 02/15/2022 at 8:21 Approved by: Dirk Johnson M.D. on 02/15/2022 at 8:23
== END ==
PROVIDERS: PCP Family Medicine; Referring Provider Family Medicine; Visit Provider Family Medicine
DX: O72.1 Other immediate postpartum hemorrhage (principal); O73.1 Retained portions of placenta and membranes, without hemorrhage
CPT/HCPCS: 76830; 76856

== ENCOUNTER → 2022-04-03 11:43 | Outpatient (CLI) | payer BC, OTHER, SELFPAY ==
[2022-04-03 14:58] LABS: TSH w/ Reflex to FT4 1.21 uIU/mL (0.47-4.68)
[2022-04-03 18:22] LABS: Appearance Urine UA CLEAR; Bilirubin Urine UA NEGATIVE (NEGATIVE); Color Urine UA YELLOW; Glucose Urine UA NEGATIVE (Negative); Ketones Urine UA NEGATIVE (NEGATIVE); Leukocyte Esterase Urine UA NEGATIVE (NEGATIVE); Nitrite Urine UA NEGATIVE (Negative); Occult Blood Urine UA TRACE-INTACT (Negative); Protein Urine UA NEGATIVE (Negative); Specific Gravity Urine UA 1.015 (1.000-1.035); Urobilinogen Urine UA 0.2 E.U./dL (0.2)
[2022-04-03 18:35] LABS: Amorphous Sediment Urine 1+; Bacteria Urine None Seen; RBC Urine 1-5/HPF (0-5/HPF); Squamous Epithelial Cell Urine 0-1 /HPF (0-5/HPF); WBC Urine 5-10/HPF (0-5/HPF)
[2022-04-03 19:58] LABS: Urine N gonorrhoeae NOT DETECTED
[2022-04-03 20:47] LABS: Urine Chlamydia NOT DETECTED
== END ==
PROVIDERS: PCP Family Medicine; Referring Provider Family Medicine; Visit Provider Family Medicine
DX: R61 Generalized hyperhidrosis (principal); A64 Unspecified sexually transmitted disease; R35.0 Frequency of micturition
CPT/HCPCS: 36415; 81001; 84443; 87086; 87491; 87591

== ENCOUNTER → 2022-05-09 10:47 | Outpatient (CLI) | payer BC, OTHER, SELFPAY ==
--- NOTE | 2022-05-09 10:49 | DI.US.S_ITS ---
PROCEDURE: US PELVIC COMPLETE INDICATIONS: Low abd pain TECHNIQUE: Real-time scanning was performed of the pelvic organs, with image documentation. Additional endovaginal scanning was necessary due to incomplete visualization of the adnexal and endometrial structures by transabdominal scanning. COMPARISON: [facility], , US PELVIC COMPLETE, 02/14/2022, 17:44. FINDINGS: Uterus: Uterus is retroflexed and normal in size at 5.9 x 5 x 3.4 cm. The myometrium is homogeneous. The endometrium measures 4 mm combined thickness. Ovaries: The right ovary measures 0.9 x 1 x 2.8 cm, with a calculated ovarian volume of 1.3 cc. The left ovary measures 2.9 x 2.8 x 2.9 cm, with a calculated ovarian volume of 12 cc. The ovaries have a normal sonographic appearance, with a dominant follicle seen involving the left ovary that measures up to 1.8 cm, which is considered to be within physiologic limits. Less than 12 follicles can be seen in each ovary. No adnexal masses are seen. Normal appearing arterial waveforms are confirmed to each ovary. Other: No pathologic free abdominal or pelvic fluid. IMPRESSION: No imaging explanation is found for this patient's presenting symptoms. Negative for ovarian torsion. We strive to produce accurate, complete, and clear reports of imaging services. To assist us in improving patient care, this report was composed using standard report templates and voice recognition software. Therefore, it may contain abnormal punctuation, insertions and/or omissions. Occasional wrong-word or sound-alike substitutions may occur. Though we review the report and make efforts to correct it, we do recommend that the report be read carefully in proper context to recognize any text inaccuracies. Dictated by: Dirk Johnson M.D. on 05/09/2022 at 15:37 Approved by: Dirk Johnson M.D. on 05/09/2022 at 15:38
== END ==
PROVIDERS: PCP Family Medicine; Referring Provider Family Medicine; Visit Provider Family Medicine
DX: R10.30 Lower abdominal pain, unspecified (principal)
CPT/HCPCS: 76830; 76856; 93976

== ENCOUNTER → 2022-07-17 10:12 | Outpatient (CLI) | payer BC, OTHER, SELFPAY | PROVIDERS: PCP Family Medicine; Visit Provider Family Medicine | DX: R39.89 Other symptoms and signs involving the genitourinary system (principal) | CPT/HCPCS: 87210 ==

== ENCOUNTER 2022-07-31 06:33 | Emergency (ER) | payer BC, OTHER, SELFPAY ==
[2022-07-31 06:56] VITALS: BP 103/62; PULSE 89; RESP 22; TEMP 36.8; O2SAT 100; BMI 28.7
--- NOTE | 2022-07-31 07:12 | ED_ITS ---
HPI - URI/Sore Throat General Chief Complaint: Upper Respiratory Symptoms Stated Complaint: sore throat, lost her voice Time Seen by Provider: 07/31/22 06:47 Source: patient Mode of arrival: Ambulatory Limitations: no limitations History of Present Illness HPI Narrative: 22-year-old female patient is 6 months , she is . She contracted an upper respiratory illness about 2 weeks ago. She is persistent sinus pressure sinus drainage. She is facial pain. She is no dental pain. She has cough that is nonproductive. She is no sore throat. She is no history of asthma or allergies. She is not a smoker. She is having no chest discomfort. She is mild nausea, she is hydrating and eating normally. Urine output is normal. She assures me she is hydrating. She is not suffering fever chills. She is a prior history of sinusitis, and feels status the concern at this time. She has used Robitussin DM. She is used Sudafed, this impacted her milk production. Related Data Home Medications Medication Instructions Recorded Confirmed prenat.vits,dre,hwr-lega-xxitf 1 tab PO DAILY 08/20/21 04/03/22 Previous Rx's Medication Instructions Recorded breast pump #1 ea 01/09/22 breast pump #1 ea 01/09/22 acetaminophen 325 mg tablet 650 mg PO Q6HR PRN Pain, Mild 01/16/22 (1-3) #30 tabs docusate sodium 100 mg capsule 100 mg PO DAILY #30 caps 01/16/22 ibuprofen 600 mg tablet 600 mg PO Q6HR PRN Pain, Mild 01/16/22 (1-3) #30 tabs metoclopramide HCl 5 mg tablet 5 mg PO QAC PRN nausea and 01/16/22 (Reglan) vomiting #10 tabs ondansetron 4 mg disintegrating 4 mg PO Q8H PRN nausea and 01/16/22 tablet vomiting #20 tabs amoxicillin 500 mg capsule 500 mg PO TID 10 days #30 caps 07/31/22 Allergies Allergy/AdvReac Type Severity Reaction Status Date / Time promethazine [From Phenergan] AdvReac Mild Dizziness Verified 04/03/22 10:35 Review of Systems Constitutional Constitutional: Reports as per HPI, Denies chills, Reports fatigue and Denies fever(s) Eyes Eyes: Denies change in vision, Reports eye discharge and Reports irritation ENT Ears, Nose, Mouth, and Throat: Denies dizziness, Denies hoarseness, Reports nasal congestion, Reports neck pain and Reports sinus pressure Cardiovascular Cardiovascular: Denies chest pain and Denies irregular heart rhythm Respiratory Respiratory: Reports cough, Denies pain on inspiration, Denies pain with cough and Denies wheezing Gastrointestinal Gastrointestinal: Reports nausea and Denies vomiting Genitourinary Genitourinary: Denies dysuria Musculoskeletal Musculoskeletal: Denies back pain and Reports neck pain Integumentary/Breasts Skin/Breast: Denies lesions and Denies rash Neurologic Neurologic: Denies dizziness Endocrine Endocrine: Reports fatigue Allergic/Immunologic Allergic/Immunologic: Denies wheezing Patient History Medical History Constipation Hyperemesis Post-dural puncture headache Spontaneous vaginal delivery Surgical History History of tonsillectomy Family History Grandfather Clotting disorder Mother Hypothyroid Social History marital status: number of children: 1 household members: spouse and children lives independently: Yes housing: house pets and animals: Yes (Dog) education level: high school occupational status: unemployed current occupational exposures/hazards: No seatbelt use: always water heater temp set < 120 deg: Yes working smoke detector in home: Yes fire extinguisher in home: Yes carbon monox detector in home: Yes firearms in home: No do you feel safe at home: Yes Smoking Status: Never smoker second hand exposure: No alcohol intake: former substance use type: does not use during the past year weight has: remained stable well-balanced diet: daily or most days daily servings fruits/ve-4 caffeine: Yes (200mg) Type(s) of exercise: walking Smoking Status: Never smoker Substance Use Type: does not use Exam Initial Vital Signs Initial Vital Signs: Vital Signs Temperature 98.3 F 07/31/22 06:56 Pulse Rate 89 07/31/22 06:56 Respiratory Rate 22 07/31/22 06:56 Blood Pressure 103/62 07/31/22 06:56 Pulse Oximetry 100 07/31/22 06:56 Oxygen Delivery Method 07/31/22 06:56 Const General: cooperative, healthy appearing and comfortable Orientation: Orientation (Normal) [facility] Head: normal to inspection, normocephalic, atraumatic and other (Bilateral ethmoid sinus tenderness.) Nose: nares normal Mouth: oral mucosae normal, lip normal and oropharynx normal Eyes General: Yes appearance normal, both eyes and all related structures Neck Neck: normal visual inspection and other (Bilateral tender anterior lymphadenopathy.) Thyroid: thyroid normal Chest Chest: other (Nontender) Resp Effort & Inspection: normal respiratory effort Auscultation: clear to auscultation bilaterally Cardio Palpation: normal PMI Rate: regular rate Rhythm: regular rhythm Heart Sounds: S1 normal and no murmurs Back/Spine/Pelvis Back: No CVA tenderness Skin General: no rashes or lesions noted Neuro General: patient alert, patient awake and patient oriented x3 Extrem General: normal to inspection and full ROM Course Orders Ordered: ED Orders 07/31/22 06:50 Covid-19 + FLU A/B + RSV - PCR Stat 07/31/22 07:34 Throat Culture Stat Vital Signs Vital signs: Vital Signs - 8 hr 07/31/22 06:56 Temperature 98.3 F Pulse Rate 89 Respiratory Rate 22 Blood Pressure 103/62 Pulse Oximetry 100 Oxygen Delivery Method Room Air MDM - URI/Sore Throat Lab Data Labs: Lab Results 07/31/22 Range/Units 06:50 SARS-CoV-2 (PCR) Negative (Negative) Influenza A (RT-PCR) Flu a negative (NEGATIVE) Influenza B (RT-PCR) Flu b negative (NEGATIVE) RSV (PCR) Negative (Negative) Point of Care Testing Rapid Strep A Negative Discharge Plan Departure Patient Disposition: Home Clinical Impression: Sinusitis Qualifiers: Sinusitis location: ethmoidal Chronicity: acute Recurrence: non-recurrent Qualified Code(s): J01.20 - Acute ethmoidal sinusitis, unspecified Instructions: DI for Sinusitis Activity Restrictions/Additional Instructions: Amoxicillin thyroid mg 3 times daily for 10 days. Mucinex, follow package instructions. Rest, hydrate well at all times. Follow-up with your doctor if not improved within 10 days. Return here as necessary. Prescriptions: New amoxicillin 500 mg capsule 500 mg PO TID 10 Days Qty: 30 0RF No Action (DME) breast pump Device See Rx Instructions .Route Qty: 1 0RF Rx Instructions: Spectra Gold breast pump (DME) breast pump Device See Rx Instructions .Route Qty: 1 0RF Label Comments: Not using at this time Rx Instructions: As directed prenat.vits,dre,[id number] Tablet 1 tab PO DAILY acetaminophen 325 mg Tablet 650 mg PO Q6HR PRN (Reason: Pain, Mild (1-3)) Qty: 30 0RF docusate sodium 100 mg Capsule 100 mg PO DAILY Qty: 30 0RF ibuprofen 600 mg Tablet 600 mg PO Q6HR PRN (Reason: Pain, Mild (1-3)) Qty: 30 0RF ondansetron 4 mg tablet,disintegrating 4 mg PO Q8H PRN (Reason: nausea and vomiting) Qty: 20 0RF metoclopramide HCl [Reglan] 5 mg tablet 5 mg PO QAC PRN (Reason: nausea and vomiting) Qty: 10 0RF Rx Instructions: administer 30 minutes before meals Referrals: Jillian Spence MD [Primary Care Provider] - Stand Alone Forms: Patient Portal/API, Work Release Note
[2022-07-31 07:37] LABS: Influenza A - CEPHEID Flu A NEGATIVE (NEGATIVE); Influenza B - CEPHEID Flu B NEGATIVE (NEGATIVE); Respiratory Syncytial Virus Negative (Negative)
[2022-07-31 08:05] LABS: COVID-19 CEPHEID 4-PLEX PCR Negative (Negative)
[2022-07-31 08:56] VITALS: BP 98/58; PULSE 76; RESP 18; O2SAT 97
== END 2022-07-31 09:02 | disposition home or self-care (01) ==
PROVIDERS: Emergency Medicine; Emergency Provider Emergency Medicine; PCP Family Medicine
DX: J01.20 Acute ethmoidal sinusitis, unspecified (principal); Z20.822 Contact with and (suspected) exposure to COVID-19
CPT/HCPCS: 0241U; 87070; 87880; 99282

== ENCOUNTER → 2022-08-20 11:58 | Outpatient (CLI) | payer BC, OTHER, SELFPAY ==
--- NOTE | 2022-08-20 12:00 | DI.RAD.S_ITS ---
PROCEDURE: XR ABDOMEN MIN 2V INDICATIONS: constipation TECHNIQUE: 2 views of the abdomen were acquired. COMPARISON: None. FINDINGS: Surgical changes and devices: None. Bowel: No pneumoperitoneum. Mild amount of stool within the right colon; otherwise normal gas pattern is normal. Soft tissues: No masses; visualized solid organ contours appear normal in size. No suspicious abdominal calcifications. Bones: No suspicious bony abnormalities. IMPRESSION: Mild amount of stool noted within the right colon; otherwise normal bowel gas pattern. Dictated by: Brett OROZCO Interpreted: Kash Pineda MD on 08/20/2022 at 12:22 Approved by: Kash Pineda M.D. on 08/20/2022 at 20:16
== END ==
PROVIDERS: PCP Family Medicine; Referring Provider Family Medicine; Visit Provider Family Medicine
DX: K59.00 Constipation, unspecified (principal)
CPT/HCPCS: 74019

== ENCOUNTER → 2022-10-01 10:43 | Outpatient (CLI) | payer BC, OTHER, MEDICAID, SELFPAY ==
[2022-10-01 12:13] LABS: Add Manual Diff / Slide Review NO; Basophils Absolute Auto 0 /uL (0-100); Basophils Percent Auto 0.5 % (0-2); Eosinophils Absolute Auto 200 /uL (0-450); Eosinophils Percent Auto 2.3 % (2-4); Hemoglobin 12.2 g/dL (12.0-16.0); Lymphocytes Absolute Auto 2600 /uL (1100-4500); Lymphocytes Percent Auto 33.7 % (25-40); Mean Corpuscular HGB Conc 32.9 % (30-36); Mean Corpuscular Hemoglobin 28.3 PG (26-34); Mean Corpuscular Volume 85.9 fL (80-100); Monocytes Absolute Auto 500 /uL (0-900); Monocytes Percent Auto 6.5 % (3-14); Neutrophils Absolute Auto 4400 /uL (1500-7000); Platelet Count 330 X10^3/uL (150-400); Red Blood Cell Count 4.31 X10^6/uL (4.0-5.2); Red Cell Distribution Width 14.1 % (11.6-14.8); White Blood Cell Count 7.8 X10^3/uL (4.5-11.0)
[2022-10-01 13:15] LABS: Urine Chlamydia NOT DETECTED; Urine N gonorrhoeae NOT DETECTED
[2022-10-01 13:24] LABS: HIV 1 & 2 Ab/Ag 4th Gen Combo NEGATIVE (NEGATIVE); Hep C Virus Ab w/Reflex Quant NEGATIVE s/c (NEGATIVE)
[2022-10-03 02:18] LABS: HSV 2 IGG AB < 0.91 index (0.00-0.90); HSV1IGG < 0.91 index (0.00-0.90)
[2022-10-03 03:23] LABS: RPR Screen Non Reactive (Non Reactive)
== END ==
PROVIDERS: PCP Family Medicine; Referring Provider Family Medicine; Visit Provider Family Medicine
DX: Z20.9 Contact with and (suspected) exposure to unspecified communicable disease (principal); D64.9 Anemia, unspecified
CPT/HCPCS: 36415; 85025; 86592; 86695; 86696; 86803; 87389; 87491; 87591

== ENCOUNTER → 2022-10-02 17:17 | Outpatient (CLI) | payer BC, OTHER, MEDICAID, SELFPAY ==
[2022-10-02 18:36] LABS: Appearance Urine UA CLEAR; Bilirubin Urine UA NEGATIVE (NEGATIVE); Color Urine UA YELLOW; Glucose Urine UA NEGATIVE (Negative); Ketones Urine UA NEGATIVE (NEGATIVE); Leukocyte Esterase Urine UA NEGATIVE (NEGATIVE); Nitrite Urine UA NEGATIVE (Negative); Occult Blood Urine UA NEGATIVE (Negative); Protein Urine UA NEGATIVE (Negative); Specific Gravity Urine UA <=1.005 (1.000-1.035); Urobilinogen Urine UA 0.2 E.U./dL (0.2)
[2022-10-02 18:46] LABS: Bacteria Urine None Seen; Culture Indicated Urine Cult Not Indicated; RBC Urine None Seen (0-5/HPF); Squamous Epithelial Cell Urine None Seen (0-5/HPF); WBC Urine None Seen (0-5/HPF)
== END ==
PROVIDERS: PCP Family Medicine; Visit Provider Physician Assistant
DX: R10.2 Pelvic and perineal pain (principal)
CPT/HCPCS: 81001

== ENCOUNTER → 2022-10-30 11:15 | Outpatient (CLI) | payer BC, OTHER, MEDICAID, SELFPAY ==
[2022-10-30 13:39] LABS: TSH w/ Reflex to FT4 1.62 uIU/mL (0.47-4.68)
== END ==
PROVIDERS: PCP Family Medicine; Referring Provider Family Medicine; Visit Provider Family Medicine
DX: Z20.9 Contact with and (suspected) exposure to unspecified communicable disease (principal)
CPT/HCPCS: 36415; 84443

== ENCOUNTER → 2022-11-20 13:57 | Outpatient (CLI) | payer BC, OTHER, MEDICAID, SELFPAY ==
[2022-11-20 20:41] LABS: Urine N gonorrhoeae NOT DETECTED
[2022-11-20 21:18] LABS: Urine Chlamydia NOT DETECTED
== END ==
PROVIDERS: PCP Family Medicine; Visit Provider Family Medicine
DX: N89.8 Other specified noninflammatory disorders of vagina (principal); Z71.1 Person with feared health complaint in whom no diagnosis is made
CPT/HCPCS: 87210; 87491; 87591

== ENCOUNTER → 2023-04-23 11:58 | Outpatient (CLI) | payer BC, OTHER, MEDICAID, SELFPAY ==
[2023-04-23 13:07] LABS: Hemoglobin A1C% w Est Avg Glu 5.1 % (4.0-6.0)
[2023-04-23 13:56] LABS: Prolactin 8.2 ng/mL (3.0-18.6)
[2023-04-23 14:10] LABS: Thyroid Stimulating Hormone 1.69 uIU/mL (0.47-4.68)
[2023-04-23 14:29] LABS: Vitamin B12 414 pg/mL (239-931)
[2023-04-23 16:15] LABS: Vitamin D 25 Hydroxy (D3) 35.6 ng/mL (30.0-100.0)
== END ==
PROVIDERS: PCP Family Medicine; Referring Provider Family Medicine; Visit Provider Family Medicine
DX: N64.3 Galactorrhea not associated with childbirth (principal); E66.9 Obesity, unspecified; R53.83 Other fatigue
CPT/HCPCS: 36415; 82306; 82607; 83036; 84146; 84443

== ENCOUNTER → 2023-05-26 12:41 | Outpatient (CLI) | payer BC, OTHER, MEDICAID, SELFPAY ==
--- NOTE | 2023-05-26 12:45 | DI.US.S_ITS ---
ULTRASOUND OF LEFT BREAST AND AXILLA: 05/26/2023 CLINICAL: Focal left breast and axilla pain. Left breast nipple discharge. No prior exams were available for comparison. Color flow and real-time ultrasound of the left breast axilla were performed. Leroy scale images of the real-time examination were reviewed. There are normal lymph nodes in the left axilla. There also are benign duct ectasia in the left breast with mobile debris. No significant abnormalities were seen sonographically in the left axilla or subareolar left breast. IMPRESSION: BENIGN There is no sonographic evidence of malignancy. There is no abnormality seen in the left axilla to correspond with the area of clinical concern and pain, however, recommend clinical follow up for persistent or worsening symptoms, or development of any clinically suspicious findings. clinical followup is recommended. There is no abnormality seen in the left breast to correspond with the area of clinical concern and non-bloody discharge from the nipple, however, recommend clinical follow up for persistent or worsening symptoms, or development of any clinically suspicious findings. Findings and recommendations were conveyed to the patient during today's evaluation. This exam was interpreted at Station ID: [id number]. Electronically Signed By: Jose C Thomas M.D. aty/:05/26/2023 14:00:07 letter sent: Clinical Evaluation Ultrasound BI-RADS: 2 Benign
== END ==
PROVIDERS: PCP Family Medicine; Referring Provider Family Medicine; Visit Provider Family Medicine
DX: N64.3 Galactorrhea not associated with childbirth (principal); N64.4 Mastodynia
CPT/HCPCS: 76642; 77065; G0279

== ENCOUNTER 2023-07-20 06:09 | Emergency (ER) | payer BC, OTHER, MEDICAID, SELFPAY ==
[2023-07-20 06:10] VITALS: BP 145/68; PULSE 92; RESP 22; TEMP 37.1; O2SAT 99; BMI 32.2
--- NOTE | 2023-07-20 06:12 | ED.GENADULT ---
HPI - General Adult <Latasha Casey DO - Last Filed: 07/20/23 21:01> General Chief complaint: Upper Respiratory Symptoms Stated complaint: bad cough sick since06/18chest hurts when coughing Time Seen by Provider: 07/20/23 06:10 Source: patient, RN notes reviewed and old records reviewed Mode of arrival: Ambulatory Limitations: no limitations History of Present Illness HPI narrative: 23-year-old female with no reported medical issues. Patient presents with complaint of cough for 4 weeks. Patient states she was improving and then started having worsening symptoms again. She states no subjective fevers but has had night sweats over the past week where she will soak through her clothes. She states cough has gotten more harsh. We will sometimes have green productive sputum. She states hurts in her chest when she coughs. She states feels sort of tight in her chest, patient has not had any wheezing. She states she has had some posttussive emesis. She has had a little bit diarrhea this past week. And no urinary symptoms other and some stress incontinence with cough. She denies any swelling of extremities. States she has been taking Mucinex for the cough. States no daily prescription otherwise. Denies any prior surgeries. Denies any tobacco, no regular alcohol or recreational drugs. Dr. Spence is her primary care provider. Patient states she presents today because her symptoms are continuing to worsen. Related Data Previous Rx's Medication Instructions Recorded fluoxetine 20 mg capsule 20 mg PO DAILY #30 caps 12/25/22 clindamycin phosphate 1 % topical 1 applic topical BEDTIME #30 grams 04/27/23 gel benzonatate 200 mg capsule 200 mg PO BID-TID PRN cough #30 07/20/23 caps benzonatate 200 mg capsule 200 mg PO BID-TID PRN cough #30 07/20/23 caps hydrocodone-homatropine 5 mg-1.5 5 ml PO Q4-6H PRN cough #150 mL 07/20/23 mg/5 mL (5 mL) oral syrup Allergies Allergy/AdvReac Type Severity Reaction Status Date / Time promethazine [From Phenergan] AdvReac Mild Dizziness Verified 04/23/23 11:37 sertraline AdvReac Unknown Verified 04/23/23 11:37 Review of Systems <Latasha Casey DO - Last Filed: 07/20/23 21:01> Review of Systems ROS Unobtainable: All systems reviewed & are unremarkable except as noted in HPI and below Patient History <Latasha Casey DO - Last Filed: 07/20/23 21:01> Medical History COVID Post-dural puncture headache Spontaneous vaginal delivery Constipation Hyperemesis Surgical History History of tonsillectomy Family History Grandfather Clotting disorder Mother Hypothyroid Social History marital status: number of children: 1 household members: spouse and children lives independently: Yes housing: house pets and animals: Yes (Dog) education level: high school occupational status: unemployed current occupational exposures/hazards: No seatbelt use: always water heater temp set < 120 deg: Yes working smoke detector in home: Yes fire extinguisher in home: Yes carbon monox detector in home: Yes firearms in home: No do you feel safe at home: Yes Smoking Status: Never smoker second hand exposure: No alcohol intake: former substance use type: does not use during the past year weight has: remained stable well-balanced diet: daily or most days daily servings fruits/ve-4 caffeine: Yes (200mg) Type(s) of exercise: walking Smoking Status: Never smoker Substance Use Type: does not use Exam <Latasha Casey DO - Last Filed: 07/20/23 21:01> Narrative Exam Narrative: GEN: well nourished, well appearing female, alert and oriented x 3, patient appears to be in mild distress. HEENT: Atraumatic, pupils are equal round reactive to light, extraocular movements are intact, mild rhinorrhea, there is no conjunctival pallor. Throat is clear without any exudates, erythema, tonsillar enlargement or uvular deviation HEART: Regular rate and rhythm without murmur, clicks, rubs. LUNGS:Lungs clear to auscultation, no wheezes, rales, crackles, chest moves symmetrically, tachypnea or accessory muscle use. Patient does have a persistent dry cough ABD:bowel sounds normal, soft, non-tender, no guarding, rebound, rigidity, no masses noted, no hepatosplenomegaly MSCL: Non-tender, no muscle atrophy, muscles strength 5/5 upper and lower extremities, full range of motion, normal gait NEURO:CN 2-12 intact, sensation normal SKIN: No rash, no erythema or other skin changes. Initial Vital Signs Initial Vital Signs: Vital Signs Temperature 98.8 F 07/20/23 06:10 Pulse Rate 92 H 07/20/23 06:10 Respiratory Rate 22 07/20/23 06:10 Blood Pressure 145/68 H 07/20/23 06:10 Pulse Oximetry 99 07/20/23 06:10 Oxygen Delivery Method Room Air 07/20/23 06:10 <Latasha Siegel MD - Last Filed: 07/20/23 09:44> Initial Vital Signs Initial Vital Signs: Vital Signs Temperature 98.8 F 07/20/23 06:10 Pulse Rate 92 H 07/20/23 06:10 Respiratory Rate 22 07/20/23 06:10 Blood Pressure 145/68 H 07/20/23 06:10 Pulse Oximetry 99 07/20/23 06:10 Oxygen Delivery Method Room Air 07/20/23 06:10 Course <Latasha Casey DO - Last Filed: 07/20/23 21:01> Orders Ordered: ED Orders 07/20/23 06:16 Chest [XR chest 2V] Stat 07/20/23 06:20 Covid-19 + FLU A/B + RSV - PCR Stat Vital Signs Vital signs: Vital Signs - 8 hr 07/20/23 06:10 07/20/23 06:33 07/20/23 06:33 Temperature 98.8 F Pulse Rate 92 H 85 Respiratory Rate 22 Blood Pressure 145/68 H 120/58 L Pulse Oximetry 99 99 Oxygen Delivery Method Room Air Room Air 07/20/23 07:00 07/20/23 07:00 07/20/23 07:30 Temperature Pulse Rate 80 88 Respiratory Rate Blood Pressure 107/55 L Pulse Oximetry 98 100 Oxygen Delivery Method 07/20/23 07:30 07/20/23 08:00 07/20/23 08:00 Temperature Pulse Rate 79 Respiratory Rate Blood Pressure 100/63 106/59 L Pulse Oximetry 97 Oxygen Delivery Method 07/20/23 08:02 07/20/23 08:02 Temperature Pulse Rate 86 Respiratory Rate Blood Pressure 104/61 Pulse Oximetry 98 Oxygen Delivery Method <Latasha Siegel MD - Last Filed: 07/20/23 09:44> Orders Ordered: ED Orders 07/20/23 06:16 Chest [XR chest 2V] Stat 07/20/23 06:20 Covid-19 + FLU A/B + RSV - PCR Stat Vital Signs Vital signs: Vital Signs - 8 hr 07/20/23 06:10 07/20/23 06:33 07/20/23 06:33 Temperature 98.8 F Pulse Rate 92 H 85 Respiratory Rate 22 Blood Pressure 145/68 H 120/58 L Pulse Oximetry 99 99 Oxygen Delivery Method Room Air Room Air 07/20/23 07:00 07/20/23 07:00 07/20/23 07:30 Temperature Pulse Rate 80 88 Respiratory Rate Blood Pressure 107/55 L Pulse Oximetry 98 100 Oxygen Delivery Method 07/20/23 07:30 07/20/23 08:00 07/20/23 08:00 Temperature Pulse Rate 79 Respiratory Rate Blood Pressure 100/63 106/59 L Pulse Oximetry 97 Oxygen Delivery Method 07/20/23 08:02 07/20/23 08:02 Temperature Pulse Rate 86 Respiratory Rate Blood Pressure 104/61 Pulse Oximetry 98 Oxygen Delivery Method Medical Decision Making <Latasha Casey DO - Last Filed: 07/20/23 21:01> Lab Data Labs: Lab Results 07/20/23 Range/Units 06:20 SARS-CoV-2 (PCR) Negative (Negative) Influenza A (RT-PCR) Flu a negative (NEGATIVE) Influenza B (RT-PCR) Flu b negative (NEGATIVE) RSV (PCR) Negative (Negative) Imaging Data Chest x-ray: Radiologist's Impression: No acute findings. Night read. MDM Narrative Medical decision making narrative: 23-year-old female with a about a month of cough although she states she was improving and then started to worsen again in the past week. Has had some night sweats and green productive sputum. Discussed with patient we will do covid/influenza/RSV swab pending. Patient signed out while awaiting swab result. Chest x-ray is negative. Chest x-ray unremarkable. COVID, influenza, RSV swab negative. Patient likely has post viral bronchitis. She and at bedside were counseled on expected course of recovery. Cough medication sent to pharmacy of choice. <Latasha Siegel MD - Last Filed: 07/20/23 09:44> Lab Data Labs: Lab Results 07/20/23 Range/Units 06:20 SARS-CoV-2 (PCR) Negative (Negative) Influenza A (RT-PCR) Flu a negative (NEGATIVE) Influenza B (RT-PCR) Flu b negative (NEGATIVE) RSV (PCR) Negative (Negative) MDM Narrative Medical decision making narrative: 23-year-old female with a about a month of cough although she states she was improving and then started to worsen again in the past week. Has had some night sweats and green productive sputum. Discussed with patient we will do covid/influenza/RSV swab Chest x-ray Chest x-ray unremarkable. COVID, influenza, RSV swab negative. Patient likely has post viral bronchitis. She and at bedside were counseled on expected course of recovery. Cough medication sent to pharmacy of choice. Discharge Plan Departure Patient Disposition: Home Clinical Impression: Cough Qualifiers: Cough type: subacute Qualified Code(s): R05.2 - Subacute cough Instructions: DI for Cough -- Adult Activity Restrictions/Additional Instructions: The Hycodan may cause drowsiness. Do not take with alcohol or before driving. Prescriptions: New benzonatate 200 mg capsule 200 mg PO BID-TID PRN (Reason: cough) Qty: 30 0RF hydrocodone-homatropine 5-1.5 mg/5 mL (5 mL) syrup 5 ml PO Q4-6H PRN (Reason: cough) Qty: 150 0RF benzonatate 200 mg capsule 200 mg PO BID-TID PRN (Reason: cough) Qty: 30 0RF No Action fluoxetine 20 mg capsule 20 mg PO DAILY Qty: 30 2RF clindamycin phosphate 1 % gel 1 applic topical BEDTIME Qty: 30 2RF Referrals: Jillian Spence MD [Primary Care Provider] - Stand Alone Forms: Patient Portal/API
--- NOTE | 2023-07-20 06:16 | DI.RAD.S_ITS ---
PROCEDURE: XR CHEST 2V INDICATIONS: cough x4 weeks, green sputum, intermittent night sweats TECHNIQUE: 2 views of the chest were acquired. COMPARISON: None. FINDINGS: Surgical changes and devices: None. Lungs and pleura: Lungs are clear. No pleural effusions or pneumothorax. Mediastinum: Mediastinal contours are normal. Heart size is normal. Bones and chest wall: No suspicious bony abnormalities. Soft tissues appear unremarkable. IMPRESSION: No acute cardiopulmonary abnormality is seen. Approved by: Stailn Alvarado M.D. on 07/20/2023 at 8:42
[2023-07-20 06:33] VITALS: BP 120/58; PULSE 85; O2SAT 99
[2023-07-20 07:00] VITALS: BP 107/55; PULSE 80; O2SAT 98
[2023-07-20 07:08] LABS: Influenza A - CEPHEID Flu A NEGATIVE (NEGATIVE); Influenza B - CEPHEID Flu B NEGATIVE (NEGATIVE); Respiratory Syncytial Virus Negative (Negative)
[2023-07-20 07:22] LABS: COVID-19 CEPHEID 4-PLEX PCR Negative (Negative)
[2023-07-20 07:30] VITALS: BP 100/63; PULSE 88; O2SAT 100
[2023-07-20 08:00] VITALS: BP 106/59; PULSE 79; O2SAT 97
[2023-07-20 08:02] VITALS: BP 104/61; PULSE 86; O2SAT 98
== END 2023-07-20 08:06 | disposition home or self-care (01) ==
PROVIDERS: Emergency Provider Emergency Medicine; PCP Family Medicine
DX: R05.2 Subacute cough (principal); Z20.822 Contact with and (suspected) exposure to COVID-19
CPT/HCPCS: 0241U; 71046; 99282; 99283

== ENCOUNTER 2023-08-28 17:09 | Emergency (ER) | payer BC, OTHER, MEDICAID, SELFPAY ==
[2023-08-28 17:30] VITALS: BP 129/55; PULSE 88; RESP 17; TEMP 36.8; O2SAT 97; BMI 32.4
--- NOTE | 2023-08-28 17:33 | ED_ITS ---
<Statement entered by Ramses Polk MD - 08/28/23 18:49> I was immediately available in the department for consultation. Documentation has been reviewed. I agree with assessment and plan. HPI - General Adult General Chief complaint: Upper Respiratory Symptoms Stated complaint: CONGESTION, COUGH, CHEST PAIN Time Seen by Provider: 08/28/23 17:21 History of Present Illness HPI narrative: 23-year-old female with past medical history migraine, anxiety, depression presents to the ED with a persistent cough following a viral URI. Patient was seen in the ED on 07/20/2023 for a URI, prescribed cough suppressants. Patient states that she was getting better, however her cough has been acting up again. Patient's 2 young children also have symptoms of a URI. Patient denies fever, chills, chest pain, shortness of breath, nausea, vomiting, abdominal pain, lig htheadedness, dizziness, syncope. Related Data Previous Rx's Medication Instructions Recorded fluoxetine 20 mg capsule 20 mg PO DAILY #30 caps 12/25/22 clindamycin phosphate 1 % topical 1 applic topical BEDTIME #30 grams 04/27/23 gel benzonatate 200 mg capsule 200 mg PO BID-TID PRN cough #30 07/20/23 caps benzonatate 200 mg capsule 200 mg PO BID-TID PRN cough #30 07/20/23 caps hydrocodone-homatropine 5 mg-1.5 5 ml PO Q4-6H PRN cough #150 mL 07/20/23 mg/5 mL (5 mL) oral syrup benzonatate 200 mg capsule 200 mg PO TID PRN cough #30 caps 08/28/23 codeine 10 mg-guaifenesin 100 mg/5 10 ml PO Q4-6H PRN cough #500 mL 08/28/23 mL oral liquid (Guaifenesin AC) Allergies Allergy/AdvReac Type Severity Reaction Status Date / Time promethazine [From Phenergan] AdvReac Mild Dizziness Verified 04/23/23 11:37 sertraline AdvReac Unknown Verified 04/23/23 11:37 Review of Systems Constitutional Constitutional: Denies chills, Denies fatigue, Denies fever(s), Denies frequent falls, Denies lethargy and Denies weakness Eyes Eyes: Denies change in vision, Denies eye discharge, Denies irritation and Denies loss of vision ENT Ears, Nose, Mouth, and Throat: Denies change in voice, Denies dizziness, Denies neck pain, Denies sore throat and Denies throat swelling Cardiovascular Cardiovascular: Denies chest pain, Denies irregular heart rhythm, Denies lightheadedness, Denies palpitations, Denies dyspnea, Denies dyspnea on exertion and Denies orthopnea Respiratory Respiratory: Reports cough, Denies dyspnea, Denies dyspnea on exertion and Denies wheezing Gastrointestinal Gastrointestinal: Denies abdominal pain, Denies change in bowel habits, Denies diarrhea, Denies nausea and Denies vomiting Musculoskeletal Musculoskeletal: Denies neck pain and Denies numbness Integumentary/Breasts Skin/Breast: Denies pruritus, Denies erythema, Denies rash and Denies wounds Neurologic Neurologic: Denies behavioral changes, Denies confusion, Denies dizziness, Denies frequent falls, Denies loss of vision, Denies numbness and Denies weakness Psychiatric Psychiatric: Denies anxiety, Denies behavioral changes, Denies confusion, Denies depression, Denies homicidal ideation and Denies suicidal ideation Endocrine Endocrine: Denies fatigue, Denies flushing and Denies palpitations Hematologic/Lymphatic Hematologic/Lymphatic: Denies easy bruising Allergic/Immunologic Allergic/Immunologic: Denies urticaria, Denies throat swelling and Denies wheezing Patient History Medical History COVID Post-dural puncture headache Spontaneous vaginal delivery Constipation Hyperemesis Surgical History History of tonsillectomy Family History Grandfather Clotting disorder Mother Hypothyroid Social History marital status: number of children: 1 household members: spouse and children lives independently: Yes housing: house pets and animals: Yes (Dog) education level: high school occupational status: unemployed current occupational exposures/hazards: No seatbelt use: always water heater temp set < 120 deg: Yes working smoke detector in home: Yes fire extinguisher in home: Yes carbon monox detector in home: Yes firearms in home: No do you feel safe at home: Yes Smoking Status: Never smoker second hand exposure: No alcohol intake: former substance use type: does not use during the past year weight has: remained stable well-balanced diet: daily or most days daily servings fruits/ve-4 caffeine: Yes (200mg) Type(s) of exercise: walking Smoking Status: Never smoker Substance Use Type: does not use Exam Narrative Exam Narrative: Const General:?cooperative, healthy appearing and comfortable HENME Head:?normal to inspection Ears:?hearing grossly normal bilaterally; tympani normal on exam bilaterally Nose:?external nose normal Face and sinus:?normal facial exam and sinuses nontender Mouth:?oral mucosae normal Throat:?posterior oropharynx normal Eyes General:?appearance normal, both eyes and all related structures Neck Neck:?normal visual inspection and no lymphadenopathy noted Resp Effort & Inspection:?normal respiratory effort Auscultation:?clear to auscultation bilaterally Cardio Rate:?regular rate Rhythm:?regular rhythm Neuro General:?patient alert, patient awake and patient oriented x3 Initial Vital Signs Initial Vital Signs: Vital Signs Temperature 98.2 F 08/28/23 17:30 Pulse Rate 88 08/28/23 17:30 Respiratory Rate 17 08/28/23 17:30 Blood Pressure 129/55 L 08/28/23 17:30 Pulse Oximetry 97 08/28/23 17:30 Oxygen Delivery Method Room Air 08/28/23 17:30 Course Vital Signs Vital signs: Vital Signs - 8 hr 08/28/23 17:30 Temperature 98.2 F Pulse Rate 88 Respiratory Rate 17 Blood Pressure 129/55 L Pulse Oximetry 97 Oxygen Delivery Method Room Air Medical Decision Making [facility] Narrative Medical decision making narrative: 23-year-old female with past medical history migraine, anxiety, depression presents to the ED with a persistent cough following a viral URI. Patient's symptoms most consistent with bronchitis following a URI. Discussed supportive care. Prescribed cough medications. Recommend good hydration. Recommend follow-up with PCP as soon as possible. ED return precautions discussed with patient. Patient verbalized understanding. Medical records reviewed: Yes Discharge Plan Departure Patient Disposition: Home Clinical Impression: Bronchitis Instructions: DI for Acute Bronchitis Activity Restrictions/Additional Instructions: You were evaluated in the ED today for a cough. It appears that you have bronchitis following an upper respiratory infection. It is common for the cough to last for 3-4 weeks. You are being prescribed a cough syrup and Tessalon Perles for symptom relief. Please stay well hydrated. You may also take other [id number] cough suppressants and Mucinex. Please follow-up with your PCP as soon as possible. Return to the ED if you have worsening symptoms. Prescriptions: New benzonatate 200 mg capsule 200 mg PO TID PRN (Reason: cough) Qty: 30 0RF codeine-guaifenesin [Guaifenesin AC] 10-100 mg/5 mL liquid 10 ml PO Q4-6H PRN (Reason: cough) Qty: 500 0RF No Action fluoxetine 20 mg capsule 20 mg PO DAILY Qty: 30 2RF clindamycin phosphate 1 % gel 1 applic topical BEDTIME Qty: 30 2RF benzonatate 200 mg capsule 200 mg PO BID-TID PRN (Reason: cough) Qty: 30 0RF hydrocodone-homatropine 5-1.5 mg/5 mL (5 mL) syrup 5 ml PO Q4-6H PRN (Reason: cough) Qty: 150 0RF benzonatate 200 mg capsule 200 mg PO BID-TID PRN (Reason: cough) Qty: 30 0RF Referrals: Jillian Spence MD [Primary Care Provider] - Stand Alone Forms: Patient Portal/API
[2023-08-28 18:25] VITALS: BP 120/67; PULSE 84; TEMP 36.7; O2SAT 97
== END 2023-08-28 18:34 | disposition home or self-care (01) ==
PROVIDERS: Emergency Provider Student in an Organized Health Care Education/Training Program; PCP Family Medicine
DX: J20.9 Acute bronchitis, unspecified (principal)
CPT/HCPCS: 99281

== ENCOUNTER → 2023-09-15 15:44 | Outpatient (CLI) | payer BC, OTHER, MEDICAID, SELFPAY | PROVIDERS: PCP Family Medicine; Visit Provider Family Medicine | DX: R06.02 Shortness of breath (principal) | CPT/HCPCS: 87252 ==

== ENCOUNTER → 2023-09-15 15:51 | Outpatient (CLI) | payer BC, OTHER, MEDICAID, SELFPAY ==
--- NOTE | 2023-09-15 15:54 | DI.RAD.S_ITS ---
PROCEDURE: XR CHEST 2V INDICATIONS: cough, SOB TECHNIQUE: 2 views of the chest were acquired. COMPARISON: [facility], CR, XR CHEST 2V, 07/20/2023, 6:17. FINDINGS: Surgical changes and devices: None. Lungs and pleura: Lungs are clear. No pleural effusions or pneumothorax. Mediastinum: Mediastinal contours are normal. Heart size is normal. Bones and chest wall: No suspicious bony abnormalities. Soft tissues appear unremarkable. IMPRESSION: No acute cardiopulmonary abnormality is seen. Dictated by: Zuleima Sarmiento M.D. on 09/15/2023 at 16:48 Approved by: Zuleima Sarmiento M.D. on 09/15/2023 at 16:48
== END ==
LOC: RAD 15:53
PROVIDERS: PCP Family Medicine; Referring Provider Family Medicine; Visit Provider Family Medicine
DX: R05.9 Cough, unspecified (principal); R06.02 Shortness of breath
CPT/HCPCS: 71046; 87252